=== PATIENT | male | born 1955 | race Caucasian/White ===

== ENCOUNTER 2017-10-18 14:11 | Emergency (ER) | payer MEDICAID ==
[~2017-10-18] VITALS: Ht 182.9 cm; Wt 79.4 kg
[~2017-10-18 14:11] MED LIST: LISI-646
[2017-10-18 14:46] VITALS: BP 144/79
[2017-10-18] MEDS ORDERED: KETOROLAC TROMETH 60MG/2ML VIAL IM ONE (15:00)
== END 2017-10-18 15:57 | disposition home or self-care (01) ==
LOC: ER 14:11
DX: S33.9XXA Sprain of unspecified parts of lumbar spine and pelvis, initial encounter (principal); M51.36 Other intervertebral disc degeneration, lumbar region; M54.16 Radiculopathy, lumbar region; E11.9 Type 2 diabetes mellitus without complications; I10 Essential (primary) hypertension; W22.8XXA Striking against or struck by other objects, initial encounter; Y93.89 Activity, other specified; Y99.8 Other external cause status; Y92.89 Other specified places as the place of occurrence of the external cause
CPT/HCPCS: 72100; 93005; 96372; 99284; J1885